=== PATIENT | male | born 1965 | race Caucasian/White ===

== ENCOUNTER 2018-05-27 07:24 | Day surgery (SDC) | payer BC ==
[~2018-05-27] VITALS: Ht 182.9 cm; Wt 81.8 kg
[~2018-05-27 07:24] MED LIST: ALBU4; ALBU90OI61 INH; CYCL10 PO; Flonase 0.05% N16 GM; MONT10T PO; OMEPRAZOLE MAGN20 MG; OXYM.05NI; Omeprazole20 M1; Omeprazole20 M1 PO; Percocet 5-3251 EACH PO; QVAR REDIHALE10.6 G1 INH
== END 2018-05-27 10:10 | disposition home or self-care (01) ==
LOC: ORSCSDS 07:24
PROVIDERS: Student in an Organized Health Care Education/Training Program
PROC: 0DBN8ZX Excision of Sigmoid Colon, Via Natural or Artificial Opening Endoscopic, Diagnostic (ICD-10-PCS; principal; 2018-05-27 08:45)
PROC: 0DBM8ZX Excision of Descending Colon, Via Natural or Artificial Opening Endoscopic, Diagnostic (ICD-10-PCS; principal; 2018-05-27 08:45)
PROC: 0DB68ZX Excision of Stomach, Via Natural or Artificial Opening Endoscopic, Diagnostic (ICD-10-PCS; principal; 2018-05-27 08:45)
PROC: 0DBP8ZX Excision of Rectum, Via Natural or Artificial Opening Endoscopic, Diagnostic (ICD-10-PCS; principal; 2018-05-27 08:45)
PROC: 0DB58ZX Excision of Esophagus, Via Natural or Artificial Opening Endoscopic, Diagnostic (ICD-10-PCS; principal; 2018-05-27 08:45)
DX: K21.0 Gastro-esophageal reflux disease with esophagitis (principal); Z80.0 Family history of malignant neoplasm of digestive organs; D12.4 Benign neoplasm of descending colon; K63.5 Polyp of colon; D12.8 Benign neoplasm of rectum; R10.33 Periumbilical pain; K29.70 Gastritis, unspecified, without bleeding; K44.9 Diaphragmatic hernia without obstruction or gangrene; Z87.891 Personal history of nicotine dependence; I10 Essential (primary) hypertension; J45.909 Unspecified asthma, uncomplicated; Z79.899 Other long term (current) drug therapy
CPT/HCPCS: 88305; 88342; J7120

== ENCOUNTER 2018-06-23 14:08 | Emergency (ER) | payer BC ==
[~2018-06-23] VITALS: Ht 182.9 cm; Wt 81.7 kg
[2018-06-23] MEDS ORDERED: EPIPEN 2-P0.3 MG/0.3 IM (16:29)
[2018-06-23] MEDS ORDERED: ALBU2.5V5 NEB (16:29)
== END 2018-06-23 16:35 | disposition home or self-care (01) ==
LOC: ER 14:08
DX: T78.1XXA Other adverse food reactions, not elsewhere classified, initial encounter (principal); L29.9 Pruritus, unspecified; Z87.891 Personal history of nicotine dependence; Z91.013 Allergy to seafood; Z79.899 Other long term (current) drug therapy
CPT/HCPCS: 99283

== ENCOUNTER 2018-12-23 10:02 | Day surgery (SDC) | payer BC ==
[~2018-12-23] VITALS: Ht 182.9 cm; Wt 87.4 kg
[~2018-12-23 10:02] MED LIST changes: +ALBU2.5V5 NEB; +EPIPEN 2-P0.3 MG/0.3 IM
--- NOTE | 2018-12-23 11:09 | NUR ---
12/23/18 1109 Imani Wilcox Notified of delay at 1056.
--- NOTE | 2018-12-23 16:06 | NUR ---
12/23/18 1606 Courtney Cm DELAYED ENTRY PT INTO RECOVERY POST PROCEDURE. PT CLEARING THROAT WITH MILD COUGHING. PT INSTRUCTED TO SIT UP. ASSISTANCE OFFERED AND DECLINED. PT STATED, "I NEED A BREATHING TREATMENT." THIS NURSE INSTRUCTED PATIENT TO SIT UP, OFFERING ASSISTANCE AGAIN. PT DECLINED. PULSE OX 95-97% THROUGHOUT RECOVERY. PT LUNGS CLEAR. PT AGAIN STATES HE NEEDED A "NEBULIZER TREATMENT." DR. DIGGS INTO ROOM & ORDERED ALBUTEROL TREATMENT. TREATMENT GIVEN, PT REMINDED NOT TO TALK DURING TREATMENT, EDUCATED TO TAKE SLOW DEEP BREATHES. PT CONTINUED TO TALK THROUGHOUT TREATMENT, PULLING NEBULIZER AWAY FROM MOUTH FOR SEVERAL SENTENCES AT AT TIME. PT STATES HE "CAN BREATHE SO MUCH BETTER NOW." LUNGS CLEAR, OXYGENATION AT 97% POST BREATHING TREATMENT.
== END 2018-12-23 14:00 | disposition home or self-care (01) ==
LOC: ORSCSDS 10:02
PROVIDERS: Student in an Organized Health Care Education/Training Program
PROC: 0DB68ZX Excision of Stomach, Via Natural or Artificial Opening Endoscopic, Diagnostic (ICD-10-PCS; principal; 2018-12-23 11:30)
PROC: 0DB58ZX Excision of Esophagus, Via Natural or Artificial Opening Endoscopic, Diagnostic (ICD-10-PCS; principal; 2018-12-23 11:30)
PROC: 0DB98ZX Excision of Duodenum, Via Natural or Artificial Opening Endoscopic, Diagnostic (ICD-10-PCS; principal; 2018-12-23 11:30)
DX: K21.0 Gastro-esophageal reflux disease with esophagitis (principal); K29.70 Gastritis, unspecified, without bleeding; K44.9 Diaphragmatic hernia without obstruction or gangrene; I10 Essential (primary) hypertension; J45.909 Unspecified asthma, uncomplicated; Z87.891 Personal history of nicotine dependence; Z79.899 Other long term (current) drug therapy
CPT/HCPCS: 88305; 88312; 88341; 88342; J2704; J7120